=== PATIENT | male | born 2000 | race Two or more races ===

== ENCOUNTER 2021-08-02 13:11 | Emergency (ER) | payer SELFPAY ==
[~2021-08-02] VITALS: Ht 167.6 cm; Wt 54.5 kg
[2021-08-02 14:23] VITALS: BP 111/63
--- NOTE | 2021-08-02 15:39 | EKG ---
[address] [address] Test Date: 2021-08-02 Test Time: 15:32:32 Pat Name: YEISON VARGAS Department: Room: Gender: M [employer]: OPAL : 2000 Requested By: CHEVY MOMIN Order Number: [id number] Reading MD: Chano Vazquez Measurements Intervals [place] Rate: 76 P: ND: QRS: 76 QRSD: 92 T: 38 QT: 380 QTc: 432 Interpretive Statements SINUS RHYTHM Electronically Signed On 08-04-2021 12:45:16 [employer]ILLER WIPER by Chano Vazquez
[2021-08-02 15:54] LABS: BASO % 1 % (0-3); EOS % 0 % (0-3); HEMOGLOBIN 12.9 g/dL (13.0-17.5); LYMPH # 1.5 x10^3/uL (1.0-4.8); LYMPH % 31 % (24-48); MEAN CORPUSCULAR HEMOGLOBIN 30 pg (25-35); MEAN CORPUSCULAR HGB CONC 34 g/dL (31-37); MEAN CORPUSCULAR VOLUME 87 fL (79-100); MONO # 0.5 x10^3/uL (0.0-1.1); MONO % 11 % (0-9); NEUT # 2.8 x10^3uL (1.8-7.7); NEUT % 57 % (31-73); PLATELET COUNT 294 x10^3/uL (140-400); RED BLOOD COUNT 4.35 x10^6/uL (4.30-5.70); RED CELL DISTRIBUTION WIDTH 13.7 % (11.5-14.5); WHITE BLOOD COUNT 4.9 x10^3/uL (4.0-11.0)
[2021-08-02 15:58] LABS: CALCIUM 8.9 mg/dL (8.5-10.1); CREATININE 0.8 mg/dL (0.7-1.3); GFR 120.9; POTASSIUM 3.6 mmol/L (3.5-5.1)
--- NOTE | 2021-08-02 16:02 | PHYS DOC ---
Past History Past Surgical History: No Surgical History General Adult EDM: Chief Complaint: PSYCH EVALUATION HPI: HPI: Patient is a 18-year-old male brought in by mom for decompensated schizophrenia. He stopped taking his medicines 3 days ago due to tremors. Has not been sleeping. Takes mirtazapine, aripiprazole, and trazadone. He was recently discharged from [facility]. Denies any suicidal or homicidal ideations. Review of Systems: Review of Systems: All other systems within normal limits except for as noted in the HPI Allergies: Allergies: Allergies Coded Allergies Type Severity Reaction Last Updated Verified No Known Drug Allergies 08/02/21 No Physical Exam: PE: Constitutional: Well developed, well nourished, no acute distress, non-toxic appearance. [] HENT: Normocephalic, atraumatic, bilateral external ears normal, oropharynx moist, no oral exudates, nose normal. [] Eyes: PERRLA, EOMI, conjunctiva normal, no discharge. [] Neck: Normal range of motion, no tenderness, supple, no stridor. [] Cardiovascular:Heart rate regular rhythm, no murmur [] Lungs & Thorax: Bilateral breath sounds clear to auscultation [] Abdomen: Bowel sounds normal, soft, no tenderness, no masses, no pulsatile masses. [] Skin: Warm, dry, no erythema, no rash. [] Back: No tenderness, no CVA tenderness. [] Extremities: No tenderness, no cyanosis, no clubbing, ROM intact, no edema. [] Neurologic: Alert and oriented X 3, normal motor function, normal sensory function, no focal deficits noted. [] Psychologic: Affect normal, judgement normal, mood normal. [] Current Patient Data: Vital Signs: Vital Signs Date Time Temp Pulse Resp B/P (MAP) Pulse Ox O2 Delivery O2 Flow Rate FiO2 08/02/21 14:23 98.3 76 16 111/63 (79) 99 Room Air EKG: EKG: [] Radiology/Procedures: Radiology/Procedures: [] Heart Score: C/O Chest Pain: No Risk Factors: Risk Factors: DM, Current or recent (<one month) smoker, HTN, HLP, family history of CAD, obesity. Risk Scores: Score 0 - 3: 2.5% MACE over next 6 weeks - Discharge Home Score 4 - 6: 20.3% MACE over next 6 weeks - Admit for Clinical Observation Score 7 - 10: 72.7% MACE over next 6 weeks - Early Invasive Strategies Course & Med Decision Making: Course & Med Decision Making Patient evaluated medically cleared, PAT consulted for evaluation for placement. Patient is medically clear and will go to [facility] [place] Disclaimer: [place] Disclaimer: This electronic medical record was generated, in whole or in part, using a voice recognition dictation system. Departure Departure: Impression: Primary Impression: Schizophrenia [facility] Condition: STABLE Referrals: SUJATA GARCIA MD (PCP) Patient Instructions: Schizophrenia CHEVY MOMIN MD Aug 02, 2021 16:02
[2021-08-02 16:03] LABS: MAGNESIUM 2.4 mg/dL (1.8-2.4); TOTAL BILIRUBIN 0.5 mg/dL (0.2-1.0)
--- NOTE | 2021-08-03 08:47 | NUR ---
IP: Attempted to contact pt concerning covid results. Pt not available and has gone to an unknown clinic fro further care per brother. Informed him of positive covid test and to have pt quarantine for 10 days. If they any further questions to call me at [phone]. Brother verbalized understanding.
== END 2021-08-02 18:21 ==
LOC: ER 13:11
DX: U07.1 COVID-19 (principal); F20.9 Schizophrenia, unspecified
CPT/HCPCS: 80053; 83735; 85025; 87426; 93005; 99285; C9803; G0480; U0003

== ENCOUNTER 2021-08-25 07:56 | Emergency (ER) | payer SELFPAY ==
[~2021-08-25] VITALS: Ht 162.6 cm; Wt 58.8 kg
[2021-08-25 08:16] VITALS: BP 130/57
--- NOTE | 2021-08-25 08:17 | PHYS DOC ---
Past History Past Surgical History: No Surgical History Alcohol Use: None Adult General Chief Complaint Chief Complaint: HEADACHE HPI HPI Patient is a 20-year-old male presenting for URI symptoms. Reports symptom onset was yesterday without any known trauma, ingestion, mechanism of injury, known sick contact or recent travel. He has not taken anything in attempt to alleviate his symptoms. Nothing known makes better or worse. Timing of symptoms has been constant since onset. Reports he has had tension-like headache, body aches, nasal pressure, rhinorrhea, postnasal drip and dry nonproductive cough. Admits he is not vaccinated against COVID-19. Has history of schizophrenia, was recently seen 3 weeks prior and subsequently evaluated by Pat team and discharged to [facility]. States he has not been taking in his medicines for the past 48 hours, denies any active SI or HI. Review of Systems Review of Systems Fourteen body systems of review of systems have been reviewed. See HPI for pertinent positives and negative responses, other gil all other systems are negative, non-pertinent or non-contributory Allergies Allergies Allergies Coded Allergies Type Severity Reaction Last Updated Verified No Known Drug Allergies 08/02/21 No Physical Exam Physical Exam General: Appears well, non toxic, and comfortable Skin: Warm, dry. Normal for ethnicity. HEENT: Atraumatic. PERRLA. Rhinorrhea and congestion. Nasal turbinates boggy b/l. Moist mucous membranes. Uvula midline. Maintaining secretions. No phonation changes. Neck: Trachea midline. Normal ROM. No stridor. No meningeal signs or nuchal rigidity Respiratory: Normal WOB. CTAB w/o w/r/r. No tachypnea. Cardiovascular: Regular rate and rhythm. Normal peripheral perfusion. Abdomen: Soft. Non tender. No distension. Back: Normal ROM. Musculoskeletal: No swelling or deformity. Neuro: Alert and oriented x 4. MAEE. Lymph: No cervical LAD. Psych: Odd affect, normal mood Current Patient Data Vital Signs Vital Signs Date Time Temp Pulse Resp B/P (MAP) Pulse Ox O2 Delivery O2 Flow Rate FiO2 08/25/21 08:16 97.9 88 16 130/57 (81) 97 Room Air Vital Signs Date Time Temp Pulse Resp B/P (MAP) Pulse Ox O2 Delivery O2 Flow Rate FiO2 08/25/21 08:16 97.9 88 16 130/57 (81) 97 Room Air Lab Results Laboratory Tests Test 08/25/21 08:34 Influenza Type A (Rapid) Negative Influenza Type B (Rapid) Negative EKG EKG [] Radiology/Procedures Radiology/Procedures [] Heart Score C/O Chest Pain: No Risk Factors: Risk Factors: DM, Current or recent (<one month) smoker, HTN, HLP, family history of CAD, obesity. Risk Scores: Risk Factors: DM, Current or recent (<one month) smoker, HTN, HLP, family history of CAD, obesity. Course & Med Decision Making Course & Med Decision Making ABCs unremarkable HPI and physical exam nonconcerning for any emergent or surgical issues I discussed most likely diagnosis of URI, likely viral syndrome in etiology. Cannot exclude COVID-19 in an unvaccinated individual with generalized muscle aches and upper respiratory symptoms, influenza test negative today, PCR COVID- 19 pending Instructions self quarantine with continued supportive care practices and close outpatient follow-up advised when safe to do so [place] Disclaimer Dragon Disclaimer This electronic medical record was generated, in whole or in part, using a voice recognition dictation system. Departure Departure: Impression: Primary Impression: Viral syndrome Additional Impressions: Person under investigation for COVID-19 Schizophrenia Disposition: HOME / SELF CARE / HOMELESS Condition: STABLE Referrals: SUJATA GARCIA MD (PCP) Additional Instructions: You were seen for headache, nasal congestion, body aches, and possible infection with COVID-19. Your physical exam was reassuring. We tested you for COVID-19 but this test does not come back for 1 to 2 days. In the meantime you need to quarantine yourself at home away from all other individuals, especially those w ho are elderly or have any other chronic health issues or an immunocompromised status. Alternate Tylenol and ibuprofen as needed for body aches and pain. If your test does come back positive you need to quarantine yourself for 10 days until symptom-free. You should make sure to drink plenty of fluids and get plenty of rest. In addition, it is pertinent you follow-up with your behavioral health provider in outpatient setting and take all of your behavioral health medications as prescribed. You should return to the ED if you develop worsening cough, shortness of breath, chest pain, thoughts of harming self or others, or any other new or concerning symptoms. Problem Qualifiers RANDELL MCDONALD DO Aug 25, 2021 08:17
[2021-08-25 09:20] LABS: INFLUENZA A PATIENT NEGATIVE (NEGATIVE); INFLUENZA B PATIENT NEGATIVE (NEGATIVE)
== END 2021-08-25 08:47 | disposition home or self-care (01) ==
LOC: ER 07:56
DX: B34.9 Viral infection, unspecified (principal); F20.9 Schizophrenia, unspecified; Z20.822 Contact with and (suspected) exposure to COVID-19
CPT/HCPCS: 87804; 99283; C9803; U0003